=== PATIENT | female | born 1985 | race Asian ===

== ENCOUNTER 2018-07-09 16:49 | Emergency (ER) | payer BC ==
[~2018-07-09] VITALS: Ht 170.2 cm; Wt 73.9 kg
[2018-07-09 16:54] VITALS: BP 137/90; Ht 170.2 cm; Wt 73.9 kg
== END 2018-07-09 20:28 | disposition left against medical advice (07) ==
LOC: ED 16:49
DX: Z53.21 Procedure and treatment not carried out due to patient leaving prior to being seen by health care provider (principal)